=== PATIENT | female | born 1995 | race Caucasian/White ===

== ENCOUNTER 2017-04-20 09:30 | Emergency (ER) | payer OTHER ==
[2017-04-20 09:37] VITALS: RESP 16
[2017-04-20] MEDS ORDERED: HYOSCYAMINE SULFATE 0.125 MG TAB PO ONE (10:19)
[2017-04-20] MEDS ORDERED: NS 1,000 ML IV ONE (10:19)
[2017-04-20] MEDS ORDERED: LIDOCAINE 2% VISCOUS 15 ML UDCUP PO ONE (10:19)
[2017-04-20] MEDS ORDERED: MAG HYDROX/AL HYDROX/SIMETH 30 ML UDCUP PO ONE (10:19)
[2017-04-20] MEDS ORDERED: PANTOPRAZOLE SODIUM 40 MG VIAL IVP ONE (10:19)
--- NOTE | 2017-04-20 10:22 | EDPHY ---
H & P Stated Complaint: epigastric pain and back pain for 2 days. HPI/ROS: CHIEF COMPLAINT: Abdominal pain HISTORY OF PRESENT ILLNESS: Patient complains of epigastric abdominal pain that started Tuesday night. This was mild to moderate and constant in duration. Worse with intake by mouth. Nausea but no vomiting. No fever chills. No diarrhea constipation. No trauma or injury. No lower abdominal pain. No pelvic pain. No vaginal bleeding or discharge. Tolerating water but difficulty with solids. Denies any abdominal diagnoses or surgeries. Denies any heavy use of marijuana. Denies alcohol intake recently but does report occasional alcohol. 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 Originally from [place] FAMILY HISTORY: Noncontributory EXAMINATION General Appearance: Alert, no distress Head: normocephalic, atraumatic Eyes: Pupils equal and round, no conjunctival pallor or injection ENT, Mouth: Mucous membranes moist Neck: Normal inspection, supple, non-tender Respiratory: Lungs are clear to auscultation Cardiovascular: Regular rate and rhythm Gastrointestinal: Abdomen is soft and nondistended. Tenderness in the epigastrium and right upper quadrant. Mild tenderness in the left upper quadrant. No rebound. No tympany. Bowel sounds are equal in all 4 quadrants. No guarding. No CVA tenderness. Nonacute abdomen Neurological: A&O, nonfocal, strength is symmetric in the limbs Skin: Warm and dry, no rash. No petechiae or purpura Extremities: Nontender, no pedal edema Psychiatric: Mood and affect normal DIFFERENTIAL DIAGNOSES: Including but not limited to gastritis, pancreatitis, cholecystitis, cholelithiasis, renal colic, enteritis, colitis, esophagitis, reflux MDM: 10:20 a.m. Gastric abdominal pain with benign abdominal examination. Suspect gastritis or gallbladder etiology. No vomiting. No abnormality on examination. I have ordered IV fluid, IV Protonix and a GI cocktail. She is resting comfortably in no acute distress. 11:05 a.m. Patient re-evaluated resting comfortably. No acute distress. She reports minimal improvement in her symptoms after the GI cocktail, but there was some improvement. He has had no vomiting. We discussed the possibility of gastritis and treating her as such with Carafate, Prilosec and clear liquids. We discussed follow up with primary care physician and GI. We discussed return to emergency department precautions for any worsening pain, vomiting, fever. She is comfortable with this plan. I have answered all of her questions. Source: Patient Exam Limitations: No limitations - Personal History LMP (Females 10-55): 15-21 Days Ago Current Tetanus Diphtheria and Acellular Pertussis (TDAP): Yes - Medical/Surgical History Hx Asthma: No Hx Chronic Respiratory Disease: No Hx Diabetes: No Hx Cardiac Disease: No Hx Renal Disease: No Hx Cirrhosis: No Hx Alcoholism: No Hx HIV/AIDS: No Hx Splenectomy or Spleen Trauma: No Other PMH: Denies. - Social History Smoking Status: Never smoked Alcohol Use: Rarely Constitutional: Initial Vital Signs Temperature (C) 98.6 F 04/20/17 09:33 Heart Rate 113 H 04/20/17 09:33 Respiratory Rate 16 04/20/17 09:33 Blood Pressure 140/93 H 04/20/17 09:33 O2 Sat (%) 98 04/20/17 09:33 O2 Delivery Mode Room Air Allergies/Adverse Reactions: No Known Allergies Allergy (Unverified 04/20/17 09:37) Home Medications: Medication Instructions Recorded Omeprazole [Prilosec 20 mg] 20 mg PO DAILY #14 capsule. 04/20/17 Sucralfate [Carafate 1gm/10ml Oral 1 gm PO QID #240 ml 04/20/17 Liquid (*)] Medical Decision Making - Data Points Laboratory Results: Laboratory Results 04/20/17 09:51 04/20/17 09:51 04/20/17 04/20/17 04/20/17 10:45 09:51 09:51 WBC RBC Hgb Hct MCV MCH MCHC RDW Plt Count MPV Neut % (Auto) Lymph % (Auto) [place] % (Auto) Eos % (Auto) Baso % (Auto) Nucleat RBC Rel Count Absolute Neuts (auto) Absolute Lymphs (auto) Absolute Monos (auto) Absolute Eos (auto) Absolute Basos (auto) Absolute Nucleated RBC Immature Gran % Immature Gran # Sodium 141 mEq/L mEq/L (134-144) Potassium 4.2 mEq/L mEq/L (3.5-5.2) Chloride 104 mEq/L mEq/L (97-110) Carbon Dioxide 23 mEq/l mEq/l (22-31) Anion Gap 14 mEq/L mEq/L (8-16) BUN 14 mg/dL mg/dL (7-23) Creatinine 0.7 mg/dL mg/dL (0.6-1.0) Estimated GFR > 60 Glucose 88 mg/dL mg/dL (70-100) Calcium 9.5 mg/dL mg/dL (8.5-10.4) Total Bilirubin 0.5 mg/dL mg/dL (0.1-1.4) Conjugated Bilirubin 0.2 mg/dL mg/dL (0.0-0.5) Unconjugated Bilirubin 0.3 mg/dL mg/dL (0.0-1.1) AST 26 IU/L IU/L (14-46) ALT 31 IU/L IU/L (9-52) Alkaline Phosphatase 66 IU/L IU/L (38-126) Total Protein 7.6 g/dL g/dL (6.3-8.2) Albumin 4.5 g/dL g/dL (3.5-5.0) Lipase 56 IU/L IU/L (23-300) Beta HCG, Qual NEGATIVE Urine Color LT. YELLOW Urine Appearance CLEAR Urine pH 8.0 H (5.0-7.5) Ur Specific [place] 1.015 (1.002-1.030) Urine Protein NEGATIVE (NEGATIVE) Urine Ketones TRACE H (NEGATIVE) Urine Blood NEGATIVE (NEGATIVE) Urine Nitrate NEGATIVE (NEGATIVE) Urine Bilirubin NEGATIVE (NEGATIVE) Urine Urobilinogen 0.2 EU EU (0.2-1.0) Ur Leukocyte Esterase NEGATIVE (NEGATIVE) Urine RBC Pending Urine WBC Pending Ur Epithelial Cells Pending Urine Glucose NEGATIVE (NEGATIVE) 04/20/17 09:51 WBC 15.89 10^3/uL H 10^3/uL (3.80-9.50) RBC 5.14 10^6/uL 10^6/uL (4.18-5.33) Hgb 15.4 g/dL g/dL (12.6-16.3) Hct 44.8 % % (38.0-47.0) MCV 87.2 fL fL (81.5-99.8) MCH 30.0 pg pg (27.9-34.1) MCHC 34.4 g/dL g/dL (32.4-36.7) RDW 12.3 % % (11.5-15.2) Plt Count 250 10^3/uL 10^3/uL (150-400) MPV 10.4 fL fL (8.7-11.7) Neut % (Auto) 73.6 % % (39.3-74.2) Lymph % (Auto) 12.8 % L % (15.0-45.0) Sl[place] % (Auto) 6.3 % % (4.5-13.0) Eos % (Auto) 6.3 % % (0.6-7.6) Baso % (Auto) 0.7 % % (0.3-1.7) Nucleat RBC Rel Count 0.0 % % (0.0-0.2) Absolute Neuts (auto) 11.70 10^3/uL H 10^3/uL (1.70-6.50) Absolute Lymphs (auto) 2.04 10^3/uL 10^3/uL (1.00-3.00) Absolute Monos (auto) 1.00 10^3/uL H 10^3/uL (0.30-0.80) Absolute Eos (auto) 1.00 10^3/uL H 10^3/uL (0.03-0.40) Absolute Basos (auto) 0.11 10^3/uL H 10^3/uL (0.02-0.10) Absolute Nucleated RBC 0.00 10^3/uL 10^3/uL (0-0.01) Immature Gran % 0.3 % % (0.0-1.1) Immature Gran # 0.04 10^3/uL 10^3/uL (0.00-0.10) Sodium Potassium Chloride Carbon Dioxide Anion Gap BUN Creatinine Estimated GFR Glucose Calcium Total Bilirubin Conjugated Bilirubin Unconjugated Bilirubin AST ALT Alkaline Phosphatase Total Protein Albumin Lipase Beta HCG, Qual Urine Color Urine Appearance Urine pH Ur Specific [place] Urine Protein Urine Ketones Urine Blood Urine Nitrate Urine Bilirubin Urine Urobilinogen Ur Leukocyte Esterase Urine RBC Urine WBC Ur Epithelial Cells Urine Glucose Medications Given: Discontinued Medications Al Hydroxide/Mg Hydroxide (Maalox Susp) 30 ml PO ONCE ONE Stop: 04/20/17 10:20 Last Admin: 04/20/17 10:30 Dose: 30 ml Hyoscyamine Sulfate (Levsin, Hyomax-Sl) 0.25 mg PO ONCE ONE Stop: 04/20/17 10:20 Last Admin: 04/20/17 10:28 Dose: 0.25 mg Sodium Chloride (Ns) 1,000 mls @ 0 mls/hr IV EDNOW ONE; Wide Open PRN Reason: Protocol Stop: 04/20/17 10:20 Last Admin: 04/20/17 10:29 Dose: 1,000 mls Lidocaine (Lidocaine 2% Viscous) 15 ml PO ONCE ONE Stop: 04/20/17 10:20 Last Admin: 04/20/17 10:30 Dose: 15 ml Pantoprazole Sodium (Protonix) 40 mg IVP EDNOW ONE Stop: 04/20/17 10:20 Last Admin: 04/20/17 10:28 Dose: 40 mg Departure - Departure Disposition: Home, Routine, Self-Care Clinical Impression: Epigastric abdominal pain Condition: Good Instructions: Abdominal Pain (ED), Epigastric Pain (ED) Referrals: LOLITA MALONEY [Other] - As per Instructions Adeel Govea MD [Medical Doctor] - As per Instructions Juice Ku MD [place] [place] - As per Instructions Stand Alone Forms: School Excuse Prescriptions: Omeprazole [Prilosec 20 mg] 20 mg PO DAILY #14 capsule. Sucralfate [Carafate 1gm/10ml Oral Liquid (*)] 1 gm PO QID #240 ml
[2017-04-20 10:26] LABS: % IMMATURE GRANULYOCYTES 0.3 % (0.0-1.1); ABSOLUTE IMMATURE GRANULOCYTES 0.04 10^3/uL (0.00-0.10); ADD DIFF? NO; ADD MORPH? NO; ADD SCAN? NO; ALANINE AMINOTRANSFERASE 31 IU/L (9-52); ALBUMIN 4.5 g/dL (3.5-5.0); ALKALINE PHOSPHATASE 66 IU/L (38-126); ANION GAP 14 mEq/L (8-16); ASPARTATE AMINOTRANSFERASE 26 IU/L (14-46); ATYPICAL LYMPHOCYTE FLAG 0 (0-99); BILIRUBIN,TOTAL 0.5 mg/dL (0.1-1.4); CALCIUM 9.5 mg/dL (8.5-10.4); CARBON DIOXIDE 23 mEq/l (22-31); CHLORIDE 104 mEq/L (97-110); CREATININE 0.7 mg/dL (0.6-1.0); FRAGMENT RBC FLAG 0 (0-99); GLOMERULAR FILTRATION RATE > 60; GLUCOSE 88 mg/dL (70-100); HEMATOCRIT 44.8 % (38.0-47.0); HEMOGLOBIN 15.4 g/dL (12.6-16.3); LEFT SHIFT FLG 0 (0-99); LIPEMIA HEMOLYSIS FLAG 90 (0-99); MEAN CELL HEMOGLOBIN CONCENTR. 34.4 g/dL (32.4-36.7); MEAN CELL VOLUME 87.2 fL (81.5-99.8); MEAN PLATELET VOLUME 10.4 fL (8.7-11.7); PLATELET CLUMPS FLAG 10 (0-99); PLATELET COUNT 250 10^3/uL (150-400); POTASSIUM 4.2 mEq/L (3.5-5.2); RED BLOOD CELL COUNT 5.14 10^6/uL (4.18-5.33); RED CELL DISTRIBUTION WIDTH 12.3 % (11.5-15.2); SODIUM 141 mEq/L (134-144); TOTAL PROTEIN 7.6 g/dL (6.3-8.2)
[2017-04-20 10:36] LABS: BILIRUBIN-CONJUGATED 0.2 mg/dL (0.0-0.5); BILIRUBIN-UNCONJUGATED 0.3 mg/dL (0.0-1.1)
[2017-04-20 11:11] VITALS: BP 121/87; PULSE 77; TEMP 98.4; O2SAT 95
[2017-04-20 11:14] LABS: COLOR LT. YELLOW; LEUKOCYTE ESTERASE,URINE NEGATIVE (NEGATIVE); NITRITE,URINE NEGATIVE (NEGATIVE)
[2017-04-20 11:36] LABS: RBC,URINE 0-1 /hpf (0-3)
[2017-04-20 11:37] LABS: BACTERIA TRACE /hpf (NONE SEEN)
== END 2017-04-20 11:30 | disposition home or self-care (01) ==
DX: R10.13 Epigastric pain (principal); E86.9 Volume depletion, unspecified
CPT/HCPCS: 96374